=== PATIENT | male | born 1945 | race Caucasian/White ===

== ENCOUNTER 2023-03-17 08:27 | Inpatient (IN) | payer OTHER ==
[~2023-03-17] VITALS: Ht 170.2 cm; Wt 71.7 kg
[~2023-03-17 08:27] MED LIST: AMLO-258 PO; DOCU-400 PO; FAMO20 PO; TAMS0.4C94 PO
[2023-03-17] MEDS ORDERED: SODIUM CHLORIDE 0.9% 2,300 ML IV ONE (09:15)
[2023-03-17] MEDS ORDERED: CefTRIAXone 1 GM/DEXTROSE 50 ML IV ONE ×2 (09:15)
[2023-03-17] MEDS ORDERED: ACETAMINOPHEN 1000 MG/ISO-OSM 100 ML IV ONE (09:15)
[2023-03-17 09:16] LABS: COVID AG,FIA SOURCE NASAL SWAB
[2023-03-17] MEDS ORDERED: LEVOFLOXACIN 750 MG/D5% WATER 150 ML IV ONE (09:30)
[2023-03-17] MEDS ORDERED: MetroNIDAZOLE 500 MG/NACL 100 ML IV ONE (09:30)
[2023-03-17 09:35] LABS: SARS-COV2 (COVID) ANTIGEN,FIA Negative (Negative)
[2023-03-17 09:37] LABS: INFLUENZA TYPE A NEGATIVE FOR TYPE A (NEGATIVE); INFLUENZA TYPE B NEGATIVE FOR TYPE B (NEGATIVE)
[2023-03-17 11:04] LABS: APPEARANCE,URINE HAZY (CLEAR); BILIRUBIN,URINE NEGATIVE (NEGATIVE); COLOR,URINE YELLOW (YELLOW); GLUCOSE, URINE (UA) NEGATIVE (NEGATIVE); KETONES,URINE NEGATIVE (NEGATIVE); LEUKOCYTE ESTERASE ,URINE LARGE (NEGATIVE); NITRATE,URINE NEGATIVE (NEGATIVE); OCCULT BLOOD,URINE MODERATE (NEGATIVE); PROTEIN,URINE 30-70 mg/dL (NEGATIVE); UROBILINOGEN,URINE <=1.0 mg/dL (<=1.0)
[2023-03-17 11:13] LABS: SPECIFIC GRAVITIY, URINE > 1.030 (1.003-1.030)
[2023-03-17 11:45] LABS: BACTERIA,URINE Many /HPF (None Seen); WBC,URINE 51-100 /HPF (0-5)
[2023-03-17 12:00] VITALS: BP 121/76; PULSE 100; PULSE 97; RESP 23; TEMP 100.8
[2023-03-17 12:26] LABS: LACTIC ACID 1.5 mmol/L (0.4-2.0)
[2023-03-17] MEDS ORDERED: LISI10TA24 PO (14:54)
[2023-03-17] MEDS ORDERED: OMEP20CA12 PO (14:54)
[2023-03-17] MEDS ORDERED: DEXTROSE 50%-WATER 25 GM/50 ML SYRINGE IVP PRN (15:00)
[2023-03-17] MEDS: INSULIN LISPRO 100 UNITS/ML SQ PRN ×3 (15:42→21:08)
[2023-03-17 16:00] VITALS: BP 157/107; PULSE 87; PULSE 97; RESP 19; TEMP 98.4
[2023-03-17] MEDS ORDERED: INFLUENZA VIRUS VACCINE QVS 2023-24 (6MO+)/PF 60 MCG/0.5 ML SYRINGE IM. ONE (17:00)
[2023-03-17 20:00] VITALS: BP 151/82; PULSE 91; RESP 22; TEMP 100.4
[2023-03-17 20:26] LABS: GLUCOSE,POINT OF CARE 213 MG/DL (70-110)
[2023-03-17 20:26] LABS: GLUCOSE,POINT OF CARE 174 MG/DL (70-110)
[2023-03-17 20:26] LABS: GLUCOSE,POINT OF CARE 199 MG/DL (70-110)
[2023-03-17] MEDS ORDERED: MELATONIN 3 MG TABLET GT PRN (20:30)
[2023-03-17] MEDS ORDERED: ACETAMINOPHEN 650 MG/20.3 ML SOLUTION UDCUP GT PRN (20:30)
[2023-03-17] MEDS ORDERED: BISACODYL 10 MG RECTAL RECTAL SUPPOSITORY PR PRN (20:30)
[2023-03-17] MEDS ORDERED: SIMETHICONE DROPS 40 MG/0.6 ML SOLUTION 30 ML GT PRN (20:30)
[2023-03-17] MEDS ORDERED: DOCUSATE SODIUM 283 MG/5 ML MINI-ENEMA PR PRN (20:30)
[2023-03-17] MEDS ORDERED: LACTULOSE 20 GM/30 ML SOLUTION UDCUP GT PRN (20:30)
[2023-03-17] MEDS ORDERED: CEFEPIME HCL 2 GM in DEXTROSE 5%-WATER 50 ML IV SCH (21:00)
[2023-03-17] MEDS: DOCUSATE SODIUM 100 MG/10 ML LIQUID UDCUP GT SCH (21:00)
[2023-03-17] MEDS ORDERED: *CLINICAL-CEFEPIME DOSING CLINICAL ONE (21:00)
[2023-03-17] MEDS: SENNOSIDES 8.8 MG/5 ML SYRUP UDCUP GT SCH (21:00)
[2023-03-17 21:21] LABS: GLUCOMETER DEV NAME(LOC) PVLAB.39; GLUCOSE,POINT OF CARE 200 MG/DL (70-110)
[2023-03-17] MEDS: FAMOTIDINE 20 MG/2.5 ML SUSPENSION ORAL.SYG GT SCH (21:42)
[2023-03-17] MEDS: ETHYL ALCOHOL 62% ANTISEPTIC NASAL SANITIZER 0.6 ML AMPUL NASAL SCH (21:42)
[2023-03-17] MEDS: BETHANECHOL CHLORIDE 10 MG TABLET GT SCH (21:43)
[2023-03-17] MEDS: TAMSULOSIN HCL 0.4 MG CAPSULE GT SCH (21:43)
[2023-03-17] MEDS: CARBOXYMETHYLCELLULOSE SODIUM 0.4 ML OPHTHALMIC SOLUTION [PF] OU SCH (22:12)
[2023-03-17 23:30] VITALS: PULSE 93; RESP 17; O2SAT 97
[2023-03-17] MEDS: ALBUTEROL SULFATE 2.5 MG/0.5 ML NEB SOLUTION NEB SCH (23:39)
[2023-03-17] MEDS: IPRATROPIUM BROMIDE 0.5 MG/2.5 ML NEB SOLUTION NEB SCH (23:39)
[2023-03-17 23:40] VITALS: PULSE 97; RESP 17; O2SAT 97
[2023-03-17 23:58] VITALS: PULSE 98; RESP 19; O2SAT 99
[2023-03-18] VITALS (12 sets, daily range): BP systolic 125–165; BP diastolic 67–82; PULSE 83–100; RESP 17–26; TEMP 97.6–99.4; O2SAT 95–99
[2023-03-18 05:44] LABS: HEMATOCRIT 38.8 % (41-53); HEMOGLOBIN 12.9 g/dL (13.5-17.5); MEAN CORPUSCULAR HEMOGLOBIN 32.2 pg (26.0-34.0); MEAN CORPUSCULAR HGB CONC 33.2 G/dL (31.0-37.0); MEAN CORPUSCULAR VOLUME 97 fL (80-100); PLATELET COUNT (AUTO) 256 K/uL (150-450); RED CELL DISTRIBUTION WIDTH 13.1 % (11.5-14.5)
[2023-03-18] MEDS: CARBOXYMETHYLCELLULOSE SODIUM 0.4 ML OPHTHALMIC SOLUTION [PF] OU SCH ×9 (05:50→22:16)
[2023-03-18 05:53] LABS: ANION GAP 12 mmol/L (8-16); CARBON DIOXIDE 20 mmol/L (22-29); CHLORIDE 103 mmol/L (98-107); CREATININE 0.79 mg/dL (0.60-1.30); GLOMERULAR FILTR. RATE CALC > 60 mL/min (>60); GLUCOSE,RANDOM 183 mg/dL (70-110); POTASSIUM 3.8 mmol/L (3.5-5.1); SODIUM SERUM 135 mmol/L (136-145); UREA NITROGEN, BLOOD 20 mg/dL (7-18)
[2023-03-18 05:58] LABS: WHITE BLOOD COUNT (AUTO) 35.2 K/uL (4.5-11.0)
[2023-03-18 06:15] LABS: BAND NEUTROPHILS % (MANUAL) 27 % (0-5); LYMPHOCYTES % (MANUAL) 10 % (22-44); MONOCYTES % (MANUAL) 4 % (2-9); RBC MORPHOLOGY COMMENT NORMAL RBC MORPH; SEGMENTED NEUTROPHILS % 59 % (40-70); TOTAL CELLS COUNTED 100
[2023-03-18] MEDS: INSULIN LISPRO 100 UNITS/ML SQ PRN ×4 (06:32→21:17)
[2023-03-18 06:41] LABS: GLUCOSE,POINT OF CARE 173 MG/DL (70-110)
[2023-03-18] MEDS: IPRATROPIUM BROMIDE 0.5 MG/2.5 ML NEB SOLUTION NEB SCH ×5 (07:00→23:00)
[2023-03-18] MEDS: ALBUTEROL SULFATE 2.5 MG/0.5 ML NEB SOLUTION NEB SCH ×5 (07:00→23:00)
[2023-03-18] MEDS ORDERED: *CLINICAL-LEVOFLOXACIN IVPB DOSING CLINICAL ONE (10:00)
[2023-03-18] MEDS: CEFEPIME HCL 2 GM in DEXTROSE 5%-WATER 50 ML IV SCH ×2 (10:02→16:46)
[2023-03-18] MEDS: LEVOFLOXACIN 750 MG/D5% WATER 150 ML IV SCH (10:02)
[2023-03-18] MEDS: ETHYL ALCOHOL 62% ANTISEPTIC NASAL SANITIZER 0.6 ML AMPUL NASAL SCH ×2 (10:03→20:50)
[2023-03-18] MEDS: DOCUSATE SODIUM 100 MG/10 ML LIQUID UDCUP GT SCH ×2 (10:03→20:49)
[2023-03-18] MEDS: FAMOTIDINE 20 MG/2.5 ML SUSPENSION ORAL.SYG GT SCH ×2 (10:03→20:49)
[2023-03-18] MEDS: BETHANECHOL CHLORIDE 10 MG TABLET GT SCH ×3 (10:04→20:50)
[2023-03-18] MEDS: AmLODIPine BESYLATE 10 MG TABLET GT SCH (10:04)
[2023-03-18] MEDS: HYDROGEN PEROXIDE 473 ML SOLUTION TP SCH (10:04)
[2023-03-18 14:01] LABS: GLUCOMETER DEV NAME(LOC) PVLAB.39; GLUCOSE,POINT OF CARE 214 MG/DL (70-110)
[2023-03-18] MEDS: MetroNIDAZOLE 500 MG TABLET GT SCH (16:46)
[2023-03-18 17:51] LABS: BASOPHILS % (AUTO) 0.2 % (0.0-2.0); EOSINOPHILS % (AUTO) 0.3 % (1.0-6.0); HEMOGLOBIN 11.9 g/dL (13.5-17.5); LYMPHOCYTES # (AUTO) 1.3 K/uL (1.0-4.8); LYMPHOCYTES % (AUTO) 4.6 % (22.0-44.0); MEAN CORPUSCULAR HEMOGLOBIN 32.2 pg (26.0-34.0); MEAN CORPUSCULAR VOLUME 98 fL (80-100); MONOCYTES # (AUTO) 1.2 K/uL (0.1-1.0); MONOCYTES % (AUTO) 4.5 % (2.0-9.0); NEUTROPHILS # (AUTO) 24.5 K/uL (1.8-7.7); PLATELET COUNT (AUTO) 251 K/uL (150-450); RED BLOOD CELL COUNT(AUTO) 3.69 MIL/uL (4.50-5.90); WHITE BLOOD COUNT (AUTO) 27.1 K/uL (4.5-11.0)
[2023-03-18 17:52] LABS: NEUTROPHILS % (AUTO) 90.4 % (40.0-70.0)
[2023-03-18] MEDS: TAMSULOSIN HCL 0.4 MG CAPSULE GT SCH (20:49)
[2023-03-18] MEDS: SENNOSIDES 8.8 MG/5 ML SYRUP UDCUP GT SCH (20:50)
[2023-03-18 21:36] LABS: GLUCOSE,POINT OF CARE 209 MG/DL (70-110)
[2023-03-18 21:36] LABS: GLUCOSE,POINT OF CARE 194 MG/DL (70-110)
[2023-03-19] VITALS (11 sets, daily range): BP systolic 107–127; BP diastolic 71–79; PULSE 78–101; RESP 16–23; TEMP 97.7–98.7; O2SAT 95–99
[2023-03-19] MEDS: CEFEPIME HCL 2 GM in DEXTROSE 5%-WATER 50 ML IV SCH ×4 (00:22→23:35)
[2023-03-19] MEDS: MetroNIDAZOLE 500 MG TABLET GT SCH ×4 (00:22→23:35)
[2023-03-19 05:06] LABS: BASOPHILS % (AUTO) 0.3 % (0.0-2.0); EOSINOPHILS % (AUTO) 0.9 % (1.0-6.0); HEMATOCRIT 36.5 % (41-53); HEMOGLOBIN 12.4 g/dL (13.5-17.5); LYMPHOCYTES # (AUTO) 1.3 K/uL (1.0-4.8); LYMPHOCYTES % (AUTO) 6.6 % (22.0-44.0); MEAN CORPUSCULAR HEMOGLOBIN 32.8 pg (26.0-34.0); MEAN CORPUSCULAR VOLUME 96 fL (80-100); MONOCYTES # (AUTO) 0.9 K/uL (0.1-1.0); MONOCYTES % (AUTO) 4.7 % (2.0-9.0); NEUTROPHILS # (AUTO) 17.1 K/uL (1.8-7.7); PLATELET COUNT (AUTO) 254 K/uL (150-450); RED BLOOD CELL COUNT(AUTO) 3.79 MIL/uL (4.50-5.90); WHITE BLOOD COUNT (AUTO) 19.5 K/uL (4.5-11.0)
[2023-03-19 05:11] LABS: NEUTROPHILS % (AUTO) 87.5 % (40.0-70.0)
[2023-03-19 05:23] LABS: ALANINE AMINOTRANSFERASE 27 U/L (12-78); ALBUMIN 1.8 g/dL (3.4-5.0); ALKALINE PHOSPHATASE 88 U/L (46-116); ANION GAP 10 mmol/L (8-16); ASPARTATE AMINOTRANSFERASE 20 U/L (15-37); BILIRUBIN,TOTAL 0.4 mg/dL (0.1-1.0); CALCIUM, TOTAL 8.4 mg/dL (8.8-10.5); CARBON DIOXIDE 20 mmol/L (22-29); CHLORIDE 101 mmol/L (98-107); CREATININE 0.76 mg/dL (0.60-1.30); GLOMERULAR FILTR. RATE CALC > 60 mL/min (>60); GLUCOSE,RANDOM 212 mg/dL (70-110); POTASSIUM 3.5 mmol/L (3.5-5.1); SODIUM SERUM 131 mmol/L (136-145); TOTAL PROTEIN, SERUM 6.4 g/dL (6.4-8.2); UREA NITROGEN, BLOOD 19 mg/dL (7-18)
[2023-03-19] MEDS: CARBOXYMETHYLCELLULOSE SODIUM 0.4 ML OPHTHALMIC SOLUTION [PF] OU SCH ×9 (05:34→22:15)
[2023-03-19] MEDS: INSULIN LISPRO 100 UNITS/ML SQ PRN ×4 (06:11→20:54)
[2023-03-19 06:26] LABS: GLUCOMETER DEV NAME(LOC) PVLAB.39; GLUCOSE,POINT OF CARE 241 MG/DL (70-110)
[2023-03-19] MEDS: ALBUTEROL SULFATE 2.5 MG/0.5 ML NEB SOLUTION NEB SCH ×5 (07:54→23:00)
[2023-03-19] MEDS: IPRATROPIUM BROMIDE 0.5 MG/2.5 ML NEB SOLUTION NEB SCH ×5 (07:54→23:00)
[2023-03-19] MEDS: ETHYL ALCOHOL 62% ANTISEPTIC NASAL SANITIZER 0.6 ML AMPUL NASAL SCH ×2 (08:04→20:22)
[2023-03-19] MEDS: FAMOTIDINE 20 MG/2.5 ML SUSPENSION ORAL.SYG GT SCH ×2 (08:04→20:22)
[2023-03-19] MEDS: BETHANECHOL CHLORIDE 10 MG TABLET GT SCH ×3 (08:05→20:22)
[2023-03-19] MEDS: AmLODIPine BESYLATE 10 MG TABLET GT SCH (08:05)
[2023-03-19] MEDS: DOCUSATE SODIUM 100 MG/10 ML LIQUID UDCUP GT SCH ×2 (08:05→20:22)
[2023-03-19] MEDS: HYDROGEN PEROXIDE 473 ML SOLUTION TP SCH (08:08)
[2023-03-19] MEDS: LEVOFLOXACIN 750 MG/D5% WATER 150 ML IV SCH (09:22)
[2023-03-19] MEDS ORDERED: SODIUM CHLORIDE 0.9% 250 ML IV ONE (15:42)
[2023-03-19 17:17] LABS: GLUCOMETER DEV NAME(LOC) 5N.1C; GLUCOSE,POINT OF CARE 247 MG/DL (70-110)
[2023-03-19 19:56] LABS: GLUCOMETER DEV NAME(LOC) 5N.2C; GLUCOSE,POINT OF CARE 214 MG/DL (70-110)
[2023-03-19] MEDS: SENNOSIDES 8.8 MG/5 ML SYRUP UDCUP GT SCH (20:21)
[2023-03-19] MEDS: TAMSULOSIN HCL 0.4 MG CAPSULE GT SCH (20:22)
[2023-03-20 00:23] VITALS: BP 123/77; PULSE 88; RESP 23; TEMP 98
[2023-03-20 02:06] LABS: GLUCOMETER DEV NAME(LOC) 5N.1C; GLUCOSE,POINT OF CARE 206 MG/DL (70-110)
[2023-03-20 04:55] VITALS: BP 123/77; PULSE 88; RESP 19; TEMP 98.3
[2023-03-20] MEDS: CARBOXYMETHYLCELLULOSE SODIUM 0.4 ML OPHTHALMIC SOLUTION [PF] OU SCH ×5 (06:20→14:48)
[2023-03-20] MEDS: INSULIN LISPRO 100 UNITS/ML SQ PRN ×2 (06:21→12:10)
[2023-03-20] MEDS: ALBUTEROL SULFATE 2.5 MG/0.5 ML NEB SOLUTION NEB SCH ×3 (07:00→15:00)
[2023-03-20] MEDS: IPRATROPIUM BROMIDE 0.5 MG/2.5 ML NEB SOLUTION NEB SCH ×3 (07:00→15:00)
[2023-03-20 07:27] VITALS: BP 134/82; PULSE 91; RESP 18; TEMP 98.2
[2023-03-20] MEDS: DOCUSATE SODIUM 100 MG/10 ML LIQUID UDCUP GT SCH (09:00)
[2023-03-20] MEDS: MetroNIDAZOLE 500 MG TABLET GT SCH (09:22)
[2023-03-20] MEDS: BETHANECHOL CHLORIDE 10 MG TABLET GT SCH (09:22)
[2023-03-20] MEDS: AmLODIPine BESYLATE 10 MG TABLET GT SCH (09:22)
[2023-03-20] MEDS: ETHYL ALCOHOL 62% ANTISEPTIC NASAL SANITIZER 0.6 ML AMPUL NASAL SCH (09:23)
[2023-03-20] MEDS: FAMOTIDINE 20 MG/2.5 ML SUSPENSION ORAL.SYG GT SCH (09:23)
[2023-03-20] MEDS: HYDROGEN PEROXIDE 473 ML SOLUTION TP SCH (09:24)
[2023-03-20] MEDS: CEFEPIME HCL 2 GM in DEXTROSE 5%-WATER 50 ML IV SCH (09:24)
[2023-03-20 10:25] VITALS: PULSE 91; RESP 14; O2SAT 97
[2023-03-20 10:40] VITALS: PULSE 75; RESP 16; O2SAT 97
[2023-03-20] MEDS: LEVOFLOXACIN 750 MG/D5% WATER 150 ML IV SCH (10:57)
[2023-03-20 11:13] VITALS: BP 121/79; PULSE 92; RESP 18; TEMP 97.9
[2023-03-20 17:21] LABS: GLUCOMETER DEV NAME(LOC) 5N.1C; GLUCOSE,POINT OF CARE 234 MG/DL (70-110)
[2023-03-20 21:31] LABS: GLUCOMETER DEV NAME(LOC) 5S.1B; GLUCOSE,POINT OF CARE 294 MG/DL (70-110)
== END 2023-03-20 15:05 | DRG 871 ==
LOC: EMS 08:30 → ICU 11:10 → 5S 03-19 10:55
PROVIDERS: ADMIT Hospitalist; ATTEND Hospitalist
PROC: 05HB33Z Insertion of Infusion Device into Right Basilic Vein, Percutaneous Approach (ICD-10-PCS; principal; 2023-03-18)
PROC: B54MZZA Ultrasonography of Right Upper Extremity Veins, Guidance (ICD-10-PCS; 2023-03-18)
DX: A41.9 Sepsis, unspecified organism (principal); I61.3 Nontraumatic intracerebral hemorrhage in brain stem; Q28.2 Arteriovenous malformation of cerebral vessels; N39.0 Urinary tract infection, site not specified; I69.354 Hemiplegia and hemiparesis following cerebral infarction affecting left non-dominant side; R65.20 Severe sepsis without septic shock; B96.89 Other specified bacterial agents as the cause of diseases classified elsewhere; R13.10 Dysphagia, unspecified; Z20.822 Contact with and (suspected) exposure to COVID-19; I10 Essential (primary) hypertension; E11.65 Type 2 diabetes mellitus with hyperglycemia; I69.391 Dysphagia following cerebral infarction; I69.328 Other speech and language deficits following cerebral infarction; Z88.0 Allergy status to penicillin; Z93.1 Gastrostomy status; Z79.899 Other long term (current) drug therapy; Z86.718 Personal history of other venous thrombosis and embolism
CPT/HCPCS: 36245; 36569; 76937; 80048; 80053; 81001; 82948; 82962; 83605; 84145; 85025; 87081; 87086; 87186; 87804; 92507; 92523; 92526; 92610; 93005; 94640; 97112; 97163; 97167; 97530; 97535; 99291; J0131; J0692; J0696; J1956; J3490; J7030; J7050; J7060